=== PATIENT | male | born 1940 | race Caucasian/White ===

== ENCOUNTER → 2019-11-16 10:33 | Outpatient (BNVA) | payer MEDICARE, OTHER, SELFPAY | PROVIDERS: PCP Urology; Visit Provider Nurse Practitioner Family | DX: Z12.5 Encounter for screening for malignant neoplasm of prostate (principal); Z80.42 Family history of malignant neoplasm of prostate; R39.9 Unspecified symptoms and signs involving the genitourinary system; N99.89 Other postprocedural complications and disorders of genitourinary system | CPT/HCPCS: 81001 ==

== ENCOUNTER → 2020-08-02 11:28 | Outpatient (BNVA) | payer MEDICARE, OTHER, SELFPAY | PROVIDERS: PCP Urology; Visit Provider Nurse Practitioner Family | DX: Z20.828 Contact with and (suspected) exposure to other viral communicable diseases (principal) | CPT/HCPCS: 87635 ==

== ENCOUNTER → 2021-11-18 12:59 | Outpatient (BNVA) | payer MEDICARE, OTHER, SELFPAY | PROVIDERS: PCP Internal Medicine; Visit Provider Urology | DX: R39.9 Unspecified symptoms and signs involving the genitourinary system (principal); Z12.5 Encounter for screening for malignant neoplasm of prostate; Z80.42 Family history of malignant neoplasm of prostate | CPT/HCPCS: 81003; G0103 ==

== ENCOUNTER → 2022-11-20 10:15 | Outpatient (BNVA) | payer MEDICARE, OTHER, SELFPAY | PROVIDERS: PCP Family Medicine; Visit Provider Family Medicine | DX: N40.0 Benign prostatic hyperplasia without lower urinary tract symptoms (principal); E78.2 Mixed hyperlipidemia; K21.9 Gastro-esophageal reflux disease without esophagitis; R39.9 Unspecified symptoms and signs involving the genitourinary system; Z76.89 Persons encountering health services in other specified circumstances; R73.03 Prediabetes | CPT/HCPCS: 80053; 80061; 83036; 84153; 85025 ==

== ENCOUNTER → 2023-02-13 09:36 | Outpatient (BNVA) | payer MEDICARE, OTHER, SELFPAY | PROVIDERS: PCP Family Medicine; Visit Provider Nurse Practitioner Family | DX: R50.9 Fever, unspecified (principal) | CPT/HCPCS: 87400; 87426 ==

== ENCOUNTER → 2023-02-23 09:13 | Outpatient (BNVA) | payer MEDICARE, OTHER, SELFPAY | PROVIDERS: PCP Family Medicine; Visit Provider Family Medicine | DX: R05.9 Cough, unspecified (principal) | CPT/HCPCS: 87426 ==

== ENCOUNTER 2023-05-13 10:57 | Outpatient (CLI) | payer MEDICARE, OTHER, SELFPAY ==
--- NOTE | 2023-05-13 11:07 | XRR_ITS ---
PROCEDURE INFORMATION: Exam: XR Chest Exam date and time: 05/13/2023 11:16 AM Age: 82 years old Clinical indication: Other: Right shoulder pain; Additional info: M25.811 - other specified joint disorders, right shoulder TECHNIQUE: Imaging protocol: Radiologic exam of the chest. Views: 2 views. COMPARISON: CR XR chest 2V* [id number] 01/30/2021 11:29 AM FINDINGS: Lungs: There is no consolidation. Pleural spaces: There is no pleural effusion or pneumothorax. There is no pleural effusion or pneumothorax. Heart/Mediastinum: Cardiomediastinal contours are unremarkable. Bones/joints: Bones are unremarkable. XR/XR chest 2V* [id number] IMPRESSION: No acute findings.
== END 2023-05-13 10:58 | disposition home or self-care (01) ==
LOC: RAD 11:02
PROVIDERS: PCP Family Medicine; Visit Provider Family Medicine
DX: M25.811 Other specified joint disorders, right shoulder (principal); M25.511 Pain in right shoulder
CPT/HCPCS: 71046

== ENCOUNTER → 2023-11-27 10:34 | Outpatient (BNVA) | payer MEDICARE, OTHER, SELFPAY | PROVIDERS: PCP Family Medicine; Visit Provider Family Medicine Adult Medicine | DX: R50.9 Fever, unspecified (principal); Z98.890 Other specified postprocedural states; J38.3 Other diseases of vocal cords; Z96.641 Presence of right artificial hip joint; L03.116 Cellulitis of left lower limb; Z96.642 Presence of left artificial hip joint; R50.82 Postprocedural fever | CPT/HCPCS: 87400 ==

== ENCOUNTER 2023-12-11 23:03 | Emergency (ER) | payer MEDICARE, OTHER, SELFPAY ==
[2023-12-11 23:08] VITALS: BP 180/90; PULSE 96; RESP 16; TEMP 37.1; O2SAT 97
--- NOTE | 2023-12-12 00:18 | ED_ITS ---
HPI - Allergic Reaction General: Chief complaint: Allergic Reaction Stated complaint: skin broke out, allergic reaction possible Time Seen by Provider: 12/12/23 00:01 Source: patient Mode of arrival: ambulatory Limitations: no limitations History of Present Illness: HPI narrative: Patient is an 83-year-old female presents to ED today along with his for evaluation of a skin rash. Patient states approximately 2 weeks ago he was placed on Ciprofloxacin and Bactrim for cellulitis involving his left leg patient states he was doing okay until yesterday when he began developing a pruritic rash. He states he first began noticing on his lower abdomen and groin. He states rash has since spread to his thighs, back, arms, buttocks. Again he reports rash is pruritic. He is not having any pain. He states he took 50 mg of Benadryl approximately 5 hours prior to arrival. He does feel like this somewhat faded the rash to his forearms. Patient has not noticed any blisters or vesicular formation. He has no oral, ocular, or genital lesions. Denies prodromal symptoms. MD complaint: allergic reaction Exposure: medication Associated symptoms: Reports rash Severity: moderate Treatment prior to arrival: benadryl (approximately 5 hours ago) and steroids (states he took a 20mg prednisone) Previous Allergic Reaction History: none Review of Systems Const: Denies: fever(s), chills, body aches, fatigue or malaise Eyes: Denies: photophobia, eye discomfort, eye discharge or eye redness ENMT: Denies: odynophagia or oral sores Musc: Denies: joint pain Skin/Breast: Reports: rash, pruritus and erythema; Denies: skin pain [facility] ED PFSH: Medical History Cellulitis of left thigh 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 Spermatocele RIGHT SPERMATOCELECTOMY Family history of prostate cancer in father Lower urinary tract symptoms Surgical History Status post left hip replacement History of nasal surgery Family History Mother , AT AGE 78 LYMPHOMA Cancer Father , AT AGE 77 Cancer PROSTATE CANCER Social History (Reviewed 12/12/23 @ 00:44 by ELDER Taylor Smoking and tobacco/nicotine status: never used tobacco/nicotine Alcohol intake: current Alcohol type: wine Substance/Drug Use: unknown Adopted: No Caregiver/support person: No Lives independently: No Household members: spouse Marital status: service: Yes Current occupational status: retired Course Vital Signs: Vital signs: Vital Signs Temperature 98.8 F 12/11/23 23:08 Pulse Rate 87 12/12/23 00:34 Respiratory Rate 18 12/12/23 00:34 Blood Pressure 180/90 12/11/23 23:08 Pulse Oximetry 92 12/12/23 00:34 Oxygen Delivery Me thod Room Air 12/12/23 00:34 MDM - Allergic Reaction Medical Decision Making At this time I have no concern for SJS/TENS. Lesions are not painful. They are pruritic. He has had no prodromal symptoms. He has no target lesions or bulla. No areas of purpura. At this time there is no mucosal or eye involvement. Patient was given strict instructions on signs/symptoms that should prompt a return visit. His rash has almost fully subsided after IV Benadryl, Pepcid, Solu-Medrol. Differential Diagnosis Likely allergic reaction and adverse reaction to drug Medical Records I reviewed the patient's medical records. No radiology studies performed this visit Discharge Plan Discharge Patient Disposition: Home Clinical Impression: Allergic drug rash due to sulfonamide Condition: Stable Prescriptions: New prednisone 10 mg tablet 10 mg PO DAILY 10 Days Qty: 20 0RF Rx Instructions: Take 5 tabs on day 1-2, 4 tabs on day 3, 3 tabs on day 4, 2 tabs on day 5, and 1 tab on day 6 No Action acetaminophen [Tylenol] 325 mg tablet 325 mg PO .PRN docusate sodium [Dulcolax Stool Softener (dss)] 100 mg capsule 100 mg PO DAILY PRN polyethylene glycol 3350 [Miralax] 17 gram/dose powder 17 g PO DAILY multivitamin Tablet 1 tab PO DAILY triamcinolone acetonide 0.1 % cream 1 applic topical BID fluticasone propionate 50 mcg/actuation spray,suspension See Rx Instructions .ROUTE .COMPLEX Qty: 48 5RF Dose Instruction: USE 1 SPRAY IN EACH NOSTRIL DAILY Rx Instructions: USE 2 SPRAY IN EACH NOSTRIL DAILY ciprofloxacin HCl 750 mg tablet 750 mg PO BID Qty: 30 0RF sulfamethoxazole-trimethoprim [Bactrim DS] 800-160 mg tablet 1 tab PO BID Qty: 30 0RF albuterol sulfate 90 mcg/actuation HFA aerosol inhaler 1 puff inhalation QID PRN (Reason: shortness of breath or wheezing) Qty: 6.7 0RF dexlansoprazole [Dexilant] 60 mg capsule,biphase delayed releas See Rx Instructions .ROUTE .COMPLEX Qty: 30 3RF Dose Instruction: TAKE ONE CAPSULE BY MOUTH EVERY DAY Rx Instructions: TAKE ONE CAPSULE BY MOUTH EVERY DAY cetirizine 10 mg tablet See Rx Instructions .ROUTE .COMPLEX Qty: 90 3RF Dose Instruction: TAKE 1 TABLET DAILY NEEDED FOR ALLERGY SYMPTOMS Rx Instructions: TAKE 1 TABLET DAILY NEEDED FOR ALLERGY SYMPTOMS alprazolam [Xanax] 0.25 mg tablet 0.25 mg PO TID PRN (Reason: anxiety) Qty: 60 1RF Discharge Orders: Discharge ED (Routine); Ordered 12/12/23 Ordered By: Bre Null Referrals: Lalo Lyman DO [Primary Care Provider] - Activity Restrictions/Additional Instructions: As we discussed your rash has almost completely subsided with the medications given here. You can continue Benadryl at a dose of 50 Mg every 4-6 hours to help with rash and itching. He may also take 20 Mg of Pepcid twice daily. I will write you for a steroid taper as well. You do not have to fill this if you feel like rash/itching is controlled with the Benadryl and Pepcid. As we discussed you need to return to the emergency department for worsening rash, any blistering or sloughing of the skin, any lesions to your mouth, genitals, eye redness or burning, fevers, generally feeling unwell, or any other concerns you may have. I hope you begin to feel better soon. Coding Level of Care Code ED Supervisor Volunteer Services for Mikayla Greenwood
[2023-12-12] MEDS: diphenhydrAMINE 50 mg/mL SDV 1mL IVP (00:29)
[2023-12-12] MEDS: famotidine 20 mg/2 mL INJ 40 MG IVP (00:32)
[2023-12-12 00:34] VITALS: PULSE 87; RESP 18; O2SAT 92
[2023-12-12] MEDS: methylPREDNISolone sod succ 125 mg/2 mL INJ IVP (00:34)
[2023-12-12 01:34] VITALS: PULSE 89; RESP 18; O2SAT 96
== END 2023-12-12 01:36 | disposition home or self-care (01) ==
PROVIDERS: Emergency Provider Physician Assistant; PCP Family Medicine
DX: L27.0 Generalized skin eruption due to drugs and medicaments taken internally (principal); T37.0X5A Adverse effect of sulfonamides, initial encounter
CPT/HCPCS: 96374; 96375; 99284; J1200; J2930; J3490

== ENCOUNTER 2023-12-21 13:45 | Outpatient (CLI) | payer MEDICARE, OTHER, SELFPAY ==
[2023-12-21 14:13] LABS: Basophils % 0.3 %; Eosinophils % 0.3 %; Hematocrit 41.6 % (37-53); Lymphocytes # 0.8 10^3/uL (0.8-4.8); Lymphocytes % 8.4 %; Mean Corpuscular HGB Conc 33.7 g/dL (30-55); Mean Corpuscular Hemoglobin 27.9 pg (27-33); Mean Corpuscular Volume 82.9 fl (82-101); Mean Platelet Volume 8.7 fL (7.4-10.4); Monocytes # 1.4 10^3/uL (0.2-0.9); Monocytes % 15.3 %; Neutrophils # 7.06 10^3/uL (1.8-7.7); Neutrophils % 75.3 %; Nucleated Red Blood Cells % 0 %; Platelet Count 299 10^3/cmm (157-399); Red Blood Count 5.02 10^6/uL (3.85-5.65); Red Cell Distribution Width 12.9 % (12.1-15.1); White Blood Count 9.39 10^3/uL (3.29-11.43)
[2023-12-21 14:29] LABS: Erythrocyte Sedimentation Rate 74 mm/hr (0-10)
[2023-12-21 14:38] LABS: Alanine Aminotransferase < 5 U/L (0-41); Albumin Level 3.8 g/dL (3.5-5.2); Alkaline Phosphatase 73 U/L (40-130); Anion Gap 16.1 (5-19); Aspartate Amino Transferase 13 U/L (0-40); Blood Urea Nitrogen 10 mg/dL (8-23); C Reactive Protein 112.9 mg/L (0.0-4.9); Calcium 8.7 mg/dL (8.5-10.5); Carbon Dioxide 23 mmol/L (22-29); Chloride 95 mmol/L (98-107); Globulin 3.4 g/dL (1.3-4.6); Glucose 113 mg/dL (65-115); Osmolality Calculated 270 mOsm/kg (285-295); Potassium 4.1 mmol/L (3.5-5.1); Sodium 130 mmol/L (136-145); Total Bilirubin 0.5 mg/dL (0.15-1.2); Total Protein 7.2 g/dL (6.6-8.7)
[2023-12-21 14:39] LABS: Lactate (Lactic Acid level) 0.9 mmol/L (0.5-2.2)
[2023-12-21 14:43] LABS: Procalcitonin 0.08 ng/mL (0-0.5)
[2023-12-21 15:10] LABS: Protein Urine 1+ (Negative); Specific Gravity, Urine 1.015 (1.005-1.030); Urine Appearance SL Hazy (CLEAR); Urine Color Yellow (Yellow); pH Urine 5 (5-7)
[2023-12-21 15:11] LABS: Bacteria Urine TRACE /hpf; Bilirubin Urine Neg (Negative); Blood Urine 3+ (Negative); Glucose Urine UA Norm (Normal); Ketones Urine 1+ (Negative); Leukocyte Esterase Urine Trace (Negative); Mucus Urine 3+ /hpf; Nitrate Urine Negative (Negative); Squamous Epithelial Cell Urine 0-4 /hpf (0-5); Urobilinogen Urine 1 mg/dL (Negative); WBC Urine 0-4 /hpf (0-5)
[2023-12-21 15:12] LABS: Add Urine Culture? No
[2023-12-22 10:50] LABS: Lyme AB Screen <0.90 index
[2023-12-24 16:34] LABS: RMSF IGG NOT DETECTED; RMSF IGM NOT DETECTED
[2023-12-24 20:35] LABS: E. Chaffeensis AB IGG <1:64; E. Chaffeensis AB IGM <1:20
== END 2023-12-21 13:46 | disposition home or self-care (01) ==
LOC: LAB 13:46
PROVIDERS: PCP Family Medicine; Visit Provider Family Medicine
DX: Z01.89 Encounter for other specified special examinations (principal); R65.10 Systemic inflammatory response syndrome (SIRS) of non-infectious origin without acute organ dysfunction
CPT/HCPCS: 36415; 80053; 81003; 83605; 84145; 85025; 85651; 86140; 86618; 86666; 86757; 87040; 87077; 87086; 87150; 87205

== ENCOUNTER 2023-12-21 18:16 | Emergency (ER) | payer MEDICARE, OTHER, SELFPAY ==
[2023-12-21] VITALS (9 sets, daily range): BP systolic 150–186; BP diastolic 67–92; PULSE 98–131; RESP 16–20; TEMP 37.6–39.1; O2SAT 93–96; BMI 25.5
--- NOTE | 2023-12-21 18:36 | XRR_ITS ---
PROCEDURE INFORMATION: Exam: XR Chest Exam date and time: 12/21/2023 6:46 PM Age: 83 years old Clinical indication: Fever TECHNIQUE: Imaging protocol: Radiologic exam of the chest. Views: 1 view. COMPARISON: CR XR chest 2V* [id number] 05/13/2023 11:16 AM FINDINGS: Lungs: A mild left retrocardiac opacity is nonspecific and suboptimally evaluated due to overlying heart. No definitive consolidation is seen. Pleural spaces: Unremarkable. No pleural effusion. No pneumothorax. Heart/Mediastinum: Unremarkable. No cardiomegaly. Bones/joints: Unremarkable. XR/XR chest 1V portable [id number] IMPRESSION: No definitive evidence of acute cardiopulmonary disease.
--- NOTE | 2023-12-21 18:52 | ED_ITS ---
HPI - Fever 2 General: Chief Complaint: Fever Stated Complaint: Chills,Weakness Time Seen by Provider: 12/21/23 18:35 Source: patient and EMS Mode of arrival: EMS Limitations: no limitations History of Present Illness: 83-year-old male states he had a fever o olamide the last 2 days up to 103 at home today. He did have hip surgery back in September and had a cellulitis at the incision but he had no redness incision no left hip pain he states he is just had generalized fever he has had increased urination every hour and body aches and chills denies any cough denies any vomiting Associated symptoms: Reports chills; Deny abdominal pain, chest pain, diarrhea, dysuria, headache(s), nausea or vomiting Review of Systems 2 Const: Reports: fever(s), chills and body aches; Denies: change in appetite Eyes: Denies: blurry vision or eye discomfort ENMT: Denies: throat pain or dental pain Card: Denies: chest pain Resp: Denies: dyspnea GI: Denies: abdominal pain, nausea, vomiting or diarrhea : Reports: urinary frequency and urinary urgency; Denies: dysuria Musc: Denies: neck pain or back pain Skin/Breast: Denies: rash Neuro: Denies: headache(s) PFSH ED 2 PFSH: Medical History Cellulitis of left thigh 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 Spermatocele RIGHT SPERMATOCELECTOMY Family history of prostate cancer in father Lower urinary tract symptoms Surgical History Status post left hip replacement History of nasal surgery Family History Mother , AT AGE 78 LYMPHOMA Cancer Father , AT AGE 77 Cancer PROSTATE CANCER Social History Smoking and tobacco/nicotine status: never used tobacco/nicotine Alcohol intake: current Alcohol type: wine Substance/Drug Use: unknown Adopted: No Caregiver/support person: No Lives independently: No Household members: spouse Marital status: service: Yes Current occupational status: retired Physical Exam 2 Const: COMMON NORMALS: patient oriented x3 HENMT: COMMON NORMALS: normocephalic and atraumatic HEAD & SCALP: n ormocephalic and atraumatic Eye: COMMON NORMALS: Equal, round and reactive pupils present and EOMs intact bilaterally PUPIL: Yes Equal, round and reactive pupils present Neck/C-Spine: COMMON NORMALS: full ROM and supple Chest: COMMONS NORMALS: normal inspection of the chest and normal palpation of entire chest wall Resp: COMMON NORMALS: normal respiratory effort, No retractions, No use of accessory muscles and clear to auscultation bilaterally AUSCULTATION: clear to auscultation bilaterally Cardio: COMMON NORMALS: regular rate, regular rhythm and No murmurs present (Cardio) RATE: regular rate RHYTHM: regular rhythm GI: COMMON NORMALS: Normal to inspection, nondistended, normoactive bowel sounds present, Soft to palpation, non-tender and no masses PALPATION: Yes Soft to palpation Extremity: COMMON NORMALS: normal to inspection OTHER: Slight tenderness noted over left hip no external cellulitis Neuro: COMMON NORMALS: patient oriented x3, moves all extremities and no focal motor deficits Psych: COMMON NORMALS: mental status grossly normal, Normal thought process present and cooperative THOUGHT PROCESS: Normal thought process present Skin: COMMON NORMALS: no rashes or lesions noted and no wounds GENERAL SKIN EXAM: no rashes or lesions noted Course 2 Vital Signs: Vital signs: Vital Signs Temperature 99.6 F 12/21/23 20:05 Pulse Rate 112 H 12/21/23 21:30 Respiratory Rate 18 12/21/23 21:30 Blood Pressure 172/80 12/21/23 21:30 Pulse Oximetry 96 12/21/23 21:30 Oxygen Delivery Me thod Room Air 12/21/23 18:22 MDM - Fever Medical Decision Making Patient presents here with fever white count is normal did have elevated CRP and ESR he is found to have a abscess on his hip on his CT he had spoke to orthopedics at [facility] where he had his original surgery patient does want to be transferred there for continuity of care they excepted and will transfer there. Medical Records I reviewed the patient's medical records. Lab Data I reviewed the patient's lab results. 12/21/23 19:05 12/21/23 19:05 Radiology Impressions Chest X-Ray 12/21/23 18:36 IMPRESSION: No definitive evidence of acute cardiopulmonary disease. Abdomen/Pelvis CT 12/21/23 20:29 IMPRESSION: 1. Two collections of fluid and gas in the left proximal anterior thigh which may communicate, likely representing abscess(es) in the setting of fever. 2. Mild increased soft tissue density in the central mesentery is likely physiologic though mesenteric panniculitis could have this appearance. Follow-up as indicated. 3. No definitive evidence of acute intra-abdominal or pelvic process. 4. 1.2 cm irregular cystic structure in the lower pole of the left kidney likely representing simple cysts though not well characterized. Recommend nonemergent renal ultrasound follow-up to confirm cyst. 5. Other nonemergent findings above. COMMENTS: Consistent with the [employer]'s Incidental Findings Committee white paper (J Am Magdiel Radiol 2018): Any incidental renal lesion less than 1 cm or classified as too small to characterize, or any incidental cystic renal lesion characterized as simple-appearing, is likely benign. No follow-up imaging is recommended for these lesions per consensus recommendations based on imaging criteria. Laboratory Results WBC 10.82 10^3/uL (3.29-11.43) 12/21/23 19:05 RBC 4.86 10^6/uL (3.85-5.65) 12/21/23 19:05 Hgb 13.50 g/dL (11.27-16.99) 12/21/23 19:05 Hct 40.4 % (37-53) 12/21/23 19:05 MCV 83.1 fl (82-101) 12/21/23 19:05 MCH 27.8 pg (27-33) 12/21/23 19:05 MCHC 33.4 g/dL (30-55) 12/21/23 19:05 RDW 12.8 % (12.1-15.1) 12/21/23 19:05 Plt Count 255 10^3/cmm (157-399) 12/21/23 19:05 MPV 8.5 fL (7.4-10.4) 12/21/23 19:05 Neut % (Auto) 80.2 % 12/21/23 19:05 Lymph % (Auto) 6.0 % 12/21/23 19:05 [place] % (Auto) 12.6 % 12/21/23 19:05 Eos % (Auto) 0.4 % 12/21/23 19:05 Baso % (Auto) 0.4 % 12/21/23 19:05 Neut # (Auto) 8.69 10^3/uL (1.8-7.7) H 12/21/23 19:05 Lymph # (Auto) 0.7 10^3/uL (0.8-4.8) L 12/21/23 19:05 [place] # (Auto) 1.4 10^3/uL (0.2-0.9) H 12/21/23 19:05 Eos # (Auto) 0.0 10^3/uL (0.0-0.8) 12/21/23 19:05 Baso # (Auto) 0.0 10^3/uL (0.0-0.1) 12/21/23 19:05 Nucleated RBC % (auto) 0 % 12/21/23 19:05 Nucleated RBCs # 0.0 /100WBC 12/21/23 19:05 Sodium 128 mmol/L (136-145) L 12/21/23 19:05 Potassium 3.7 mmol/L (3.5-5.1) 12/21/23 19:05 Chloride 94 mmol/L (98-107) L 12/21/23 19:05 Carbon Dioxide 24 mmol/L (22-29) 12/21/23 19:05 Anion Gap 13.7 (5-19) 12/21/23 19:05 BUN 11 mg/dL (8-23) 12/21/23 19:05 Creatinine 0.6 mg/dL (0.7-1.2) L 12/21/23 19:05 GFR Calculation Not Reportable 12/21/23 19:05 Glucose 148 mg/dL (65-115) H 12/21/23 19:05 Calculated Osmolality 268 mOsm/kg (285-295) L 12/21/23 19:05 Lactic Acid 1.2 mmol/L (0.5-2.2) 12/21/23 19:05 Calcium 8.5 mg/dL (8.5-10.5) 12/21/23 19:05 Total Bilirubin 0.4 mg/dL (0.15-1.2) 12/21/23 19:05 AST 12 U/L (0-40) 12/21/23 19:05 ALT 6 U/L (0-41) 12/21/23 19:05 Alkaline Phosphatase 67 U/L (40-130) 12/21/23 19:05 Total Protein 7.1 g/dL (6.6-8.7) 12/21/23 19:05 Albumin 3.4 g/dL (3.5-5.2) L 12/21/23 19:05 Globulin 3.7 g/dL (1.3-4.6) 12/21/23 19:05 Urine Color Yellow (Yellow) 12/21/23 19:55 Urine Appearance Clear (CLEAR) 12/21/23 19:55 Urine pH 6.5 (5-7) 12/21/23 19:55 Ur Specific [place] 1.010 (1.005-1.030) 12/21/23 19:55 Urine Protein Trace (Negative) 12/21/23 19:55 Urine Glucose (UA) Norm (Normal) 12/21/23 19: Urine Ketones Negative (Negative) 12/21/23 19:55 Urine Blood 2+ (Negative) H 12/21/23 19:55 Urine Nitrate Negative (Negative) 12/21/23 19:55 Urine Bilirubin Neg (Negative) 12/21/23 19: Urine Urobilinogen Norm mg/dL (Negative) 12/21/23 19:55 Ur Leukocyte Esterase Negative (Negative) 12/21/23 19:55 Urine RBC 5-10 /hpf (0-2) H 12/21/23 19:55 Urine WBC 0-4 /hpf (0-5) H 12/21/23 19:55 Ur Squamous Epith Cells 0-4 /hpf (0-5) H 12/21/23 19:55 Amorphous Sediment Not Reportable 12/21/23 19:55 Urine Bacteria Trace /hpf (NONE) 12/21/23 19:55 Urine Mucus Trace /hpf 12/21/23 19:55 Influenza Type A Ag negative (Negative) 12/21/23 19: Influenza Type B Ag negative (Negative) 12/21/23 19: SARS-CoV-2 Ag (Rapid) negative (Negative) 12/21/23 19:01 All radiology interpretation(s) finalized by discharge Discharge Plan Discharge Patient Disposition: Xfer Short-Term Hosp Clinical Impression: Abscess of hip, left Condition: Stable Prescriptions: No Action acetaminophen [Tylenol] 325 mg tablet 325 mg PO .PRN docusate sodium [Dulcolax Stool Softener (dss)] 100 mg capsule 100 mg PO DAILY PRN polyethylene glycol 3350 [Miralax] 17 gram/dose powder 17 g PO DAILY multivitamin Tablet 1 tab PO DAILY triamcinolone acetonide 0.1 % cream 1 applic topical BID fluticasone propionate 50 mcg/actuation spray,suspension See Rx Instructions .ROUTE .COMPLEX Qty: 48 5RF Dose Instruction: USE 1 SPRAY IN EACH NOSTRIL DAILY Rx Instructions: USE 2 SPRAY IN EACH NOSTRIL DAILY doxycycline hyclate 100 mg capsule 100 mg PO BID Qty: 20 0RF dexlansoprazole [Dexilant] 60 mg capsule,biphase delayed releas See Rx Instructions .ROUTE .COMPLEX Qty: 30 3RF Dose Instruction: TAKE ONE CAPSULE BY MOUTH EVERY DAY Rx Instructions: TAKE ONE CAPSULE BY MOUTH EVERY DAY cetirizine 10 mg tablet See Rx Instructions .ROUTE .COMPLEX Qty: 90 3RF Dose Instruction: TAKE 1 TABLET DAILY NEEDED FOR ALLERGY SYMPTOMS Rx Instructions: TAKE 1 TABLET DAILY NEEDED FOR ALLERGY SYMPTOMS alprazolam [Xanax] 0.25 mg tablet 0.25 mg PO TID PRN (Reason: anxiety) Qty: 60 1RF albuterol sulfate 90 mcg/actuation HFA aerosol inhaler See Rx Instructions .ROUTE .COMPLEX Qty: 51 3RF Dose Instruction: USE 1 INHALATION FOUR TIMES A DAY NEEDED FOR SHORTNESS OF BREATH OR WHEEZING Rx Instructions: USE 1 INHALATION FOUR TIMES A DAY NEEDED FOR SHORTNESS OF BREATH OR WHEEZING Referrals: Lalo Lyman DO [Primary Care Provider] - Coding Level of Care Code ED Office Machine Technician for Mikayla Greenwood
[2023-12-21] MEDS: acetaminophen 325 mg Tablet 650 MG PO (18:59)
[2023-12-21] MEDS: sodium chloride 0.9% 1,000 ML 999 ML IV ×3 (19:14→21:49)
[2023-12-21 19:15] LABS: Basophils % 0.4 %; Eosinophils % 0.4 %; Hematocrit 40.4 % (37-53); Lymphocytes # 0.7 10^3/uL (0.8-4.8); Mean Corpuscular HGB Conc 33.4 g/dL (30-55); Mean Corpuscular Hemoglobin 27.8 pg (27-33); Mean Corpuscular Volume 83.1 fl (82-101); Mean Platelet Volume 8.5 fL (7.4-10.4); Monocytes # 1.4 10^3/uL (0.2-0.9); Monocytes % 12.6 %; Neutrophils # 8.69 10^3/uL (1.8-7.7); Neutrophils % 80.2 %; Nucleated Red Blood Cells % 0 %; Platelet Count 255 10^3/cmm (157-399); Red Blood Count 4.86 10^6/uL (3.85-5.65); Red Cell Distribution Width 12.8 % (12.1-15.1); White Blood Count 10.82 10^3/uL (3.29-11.43)
[2023-12-21 19:35] LABS: Alanine Aminotransferase 6 U/L (0-41); Albumin Level 3.4 g/dL (3.5-5.2); Alkaline Phosphatase 67 U/L (40-130); Anion Gap 13.7 (5-19); Aspartate Amino Transferase 12 U/L (0-40); Blood Urea Nitrogen 11 mg/dL (8-23); Calcium 8.5 mg/dL (8.5-10.5); Carbon Dioxide 24 mmol/L (22-29); Chloride 94 mmol/L (98-107); Globulin 3.7 g/dL (1.3-4.6); Glucose 148 mg/dL (65-115); Osmolality Calculated 268 mOsm/kg (285-295); Potassium 3.7 mmol/L (3.5-5.1); Sodium 128 mmol/L (136-145); Total Bilirubin 0.4 mg/dL (0.15-1.2); Total Protein 7.1 g/dL (6.6-8.7)
[2023-12-21 19:36] LABS: Influenza A by IFA negative (Negative); Influenza B by IFA negative (Negative)
[2023-12-21 19:36] LABS: Lactic Sepsis W/Reflex 1.2 mmol/L (0.5-2.2)
[2023-12-21 19:38] LABS: SARS Covid-2 Antigen negative (Negative)
[2023-12-21 20:18] LABS: Bilirubin Urine Neg (Negative); Blood Urine 2+ (Negative); Glucose Urine UA Norm (Normal); Ketones Urine Negative (Negative); Leukocyte Esterase Urine Negative (Negative); Nitrate Urine Negative (Negative); Protein Urine Trace (Negative); Urine Appearance Clear (CLEAR); Urine Color Yellow (Yellow); Urobilinogen Urine Norm (Negative); pH Urine 6.5 (5-7)
[2023-12-21 20:19] LABS: Add Urine Microscopic? YES
[2023-12-21 20:20] LABS: Add Urine Culture? No; Bacteria Urine TRACE /hpf; Mucus Urine TRACE /hpf; Squamous Epithelial Cell Urine 0-4 /hpf (0-5); WBC Urine 0-4 /hpf (0-5)
--- NOTE | 2023-12-21 20:29 | CTR_ITS ---
PROCEDURE INFORMATION: Exam: CT Abdomen And Pelvis With Contrast Exam date and time: 12/21/2023 8:39 PM Age: 83 years old Clinical indication: Fever; Prior surgery; Surgery date: 6+ months; Surgery type: Left hip TECHNIQUE: Imaging protocol: Computed tomography of the abdomen and pelvis with contrast. Radiation optimization: All CT scans at this facility use at least one of these dose optimization techniques: automated exposure control; mA and/or kV adjustment per patient size (includes targeted exams where dose is matched to clinical indication); or iterative reconstruction. Contrast material: OMNI 350; Contrast volume: 100 ml; Contrast route: INTRAVENOUS (IV); COMPARISON: CR (CHEST, ) 12/21/2023 6:46 PM RADIATION DOSE METRICS: Total DLP (mGy-cm): 750.03 FINDINGS: Liver: The liver is normal. No hepatic masses are identified. Gallbladder and bile ducts: There is suggestion of a small gallstone in the gallbladder. There is no gallbladder wall thickening or pericholecystic inflammatory change. Pancreas: The pancreas is mildly atrophic but otherwise within normal limits. Spleen: The spleen is normal. Adrenal glands: The adrenal glands are normal. Kidneys and ureters: There is a 2.5 cm simple cyst arising from the lower pole of the right kidney. There is a 1.2 cm irregular cystic structure in the lower pole of the left kidney which is not well characterized on this study and may demonstrate some medial peripheral enhancement though likely represents a simple cyst. Excreted contrast limits evaluation for renal calcification. No definitive renal calculi are identified. There is no hydronephrosis. Stomach and bowel: Mild colonic diverticulosis without diverticulitis. Incidental note is made of small bowel in the right lower quadrant lateral to the cecum without evidence of large or small bowel obstruction. There is mild increased soft tissue density in the central mesentery which is likely physiologic though can be seen in mesenteric panniculitis. No definitive focal inflammatory changes are seen. No free fluid or fluid collections are identified. Appendix: A normal appendix is identified. Intraperitoneal space: See Stomach and bowel finding. Vasculature: Atherosclerotic calcifications of the aorta are present. Lymph nodes: Unremarkable. No enlarged lymph nodes. Urinary bladder: Unremarkable as visualized. Reproductive: The prostate is mildly enlarged and projects into the base of the otherwise normal urinary bladder. Bones/joints: Area of the left hip is suboptimally imaged due to streak artifact from left hip arthroplasty. There is a collection of fluid and gas measuring at least 2.5 cm in transverse dimension and at least 3.1 cm in craniocaudal extent, likely representing an abscess in the setting of fever. There is suggestion of an additional collection just inferiorly measuring up to 2.1 x 3.6 cm which may communicate with this collection. These collections appear to be within the anterior musculature of the left proximal thigh though may be within the intermuscular fascia or fat. Soft tissues: Small bilateral inguinal hernias containing only fat. Other findings: There is no ductal dilatation. CT/CT abdomen pelvis w con* [id number] IMPRESSION: 1. Two collections of fluid and gas in the left proximal anterior thigh which may communicate, likely representing abscess(es) in the setting of fever. 2. Mild increased soft tissue density in the central mesentery is likely physiologic though mesenteric panniculitis could have this appearance. Follow-up as indicated. 3. No definitive evidence of acute intra-abdominal or pelvic process. 4. 1.2 cm irregular cystic structure in the lower pole of the left kidney likely representing simple cysts though not well characterized. Recommend nonemergent renal ultrasound follow-up to confirm cyst. 5. Other nonemergent findings above. COMMENTS: Consistent with the [employer] [employer]'s Incidental Findings Committee white paper (J Am Magdiel Radiol 2018): Any incidental renal lesion less than 1 cm or classified as too small to characterize, or any incidental cystic renal lesion characterized as simple-appearing, is likely benign. No follow-up imaging is recommended for these lesions per consensus recommendations based on imaging criteria.
[2023-12-21] MEDS: iohexol 350 mg/mL 500 mL Btl (per mL) IV (20:44)
[2023-12-21] MEDS: vancomycin 1,000 MG in sodium chloride 0.9% 250 ML 250 MG IV (21:30)
[2023-12-21] MEDS: bisacodyl 5 mg Tablet 10 MG PO (22:32)
[2023-12-21] MEDS: ondansetron 2 mg/ML SDV 2 mL 4 MG IVP (23:29)
[2023-12-21] MEDS: acetaminophen 500 mg Tablet 1000 MG PO (23:30)
--- NOTE | 2023-12-22 02:19 | PC.NURSE ---
lab called with a preliminary result of 1/6 bottles gram + cocci in chains.
[2023-12-22 03:45] LABS: Bacillus cereus group Not Detected (NOT DETECT); Bacillus subtillis group Not Detected (NOT DETECT); Corynebacterium Not Detected (NOT DETECT); Cutibacterium acnes (P.acnes) Not Detected (NOT DETECT); Enterococcus Not Detected (NOT DETECT); Enterococcus faecalis Not Detected (NOT DETECT); Enterococcus faecium Not Detected (NOT DETECT); Lactobacillus species Not Detected (NOT DETECT); Listeria Not Detected (NOT DETECT); Listeria monocytogenes Not Detected (NOT DETECT); Micrococcus Not Detected (NOT DETECT); Pan Candida Not Detected (NOT DETECT); Pan Gram-Negative Not Detected (NOT DETECT); Staphylococcus epidermidis Not Detected (NOT DETECT); Staphylococcus lugdunensis Not Detected (NOT DETECT); Staphylococcus species Not Detected (NOT DETECT); Streptococcus agalactiae Detected (NOT DETECT); Streptococcus anginosus group Not Detected (NOT DETECT); Streptococcus pneumoniae Not Detected (NOT DETECT); Streptococcus pyogenes Not Detected (NOT DETECT); Streptococcus species Detected (NOT DETECT)
== END 2023-12-21 23:48 | disposition short-term general hospital (02) ==
PROVIDERS: Emergency Provider Emergency Medicine; PCP Family Medicine
DX: L02.416 Cutaneous abscess of left lower limb (principal); Z11.52 Encounter for screening for COVID-19
CPT/HCPCS: 36415; 71045; 74177; 80053; 81001; 81003; 83605; 84145; 85025; 85651; 86140; 86618; 86666; 86757; 87040; 87077; 87086; 87150; 87205; 87426; 87804; 96361; 96365; 96375; 99285; J2405; J3370; J7030; J7050; Q9967

== ENCOUNTER 2024-01-26 08:30 | Oncology outpatient (recurring) (ONCR) | payer MEDICARE, OTHER, SELFPAY ==
[2024-01-05 10:57] LABS: Basophils # 0.1 10^3/uL (0.0-0.1); Basophils % 1.9 %; Eosinophils # 0.6 10^3/uL (0.0-0.8); Eosinophils % 9.2 %; Hematocrit 36.1 % (37-53); Lymphocytes # 1.4 10^3/uL (0.8-4.8); Lymphocytes % 19.7 %; Mean Corpuscular HGB Conc 32.7 g/dL (30-55); Mean Corpuscular Hemoglobin 27.6 pg (27-33); Mean Corpuscular Volume 84.5 fl (82-101); Mean Platelet Volume 8.7 fL (7.4-10.4); Monocytes # 0.7 10^3/uL (0.2-0.9); Monocytes % 10.7 %; Neutrophils % 58.4 %; Nucleated Red Blood Cells % 0 %; Platelet Count 329 10^3/cmm (157-399); Red Blood Count 4.27 10^6/uL (3.85-5.65); Red Cell Distribution Width 13.4 % (12.1-15.1); White Blood Count 6.85 10^3/uL (3.29-11.43)
[2024-01-05 11:23] LABS: Alanine Aminotransferase 7 U/L (0-41); Albumin Level 3.8 g/dL (3.5-5.2); Alkaline Phosphatase 82 U/L (40-130); Anion Gap 15.6 (5-19); Aspartate Amino Transferase 23 U/L (0-40); Blood Urea Nitrogen 10 mg/dL (8-23); C Reactive Protein 5.6 mg/L (0.0-4.9); Calcium 8.8 mg/dL (8.5-10.5); Carbon Dioxide 27 mmol/L (22-29); Chloride 100 mmol/L (98-107); Globulin 3.1 g/dL (1.3-4.6); Glucose 136 mg/dL (65-115); Osmolality Calculated 287 mOsm/kg (285-295); Potassium 4.6 mmol/L (3.5-5.1); Sodium 138 mmol/L (136-145); Total Bilirubin 0.4 mg/dL (0.15-1.2); Total Protein 6.9 g/dL (6.6-8.7)
[2024-01-13 11:10] LABS: Basophils # 0.1 10^3/uL (0.0-0.1); Basophils % 1.8 %; Eosinophils # 0.7 10^3/uL (0.0-0.8); Eosinophils % 14.1 %; Hematocrit 36.9 % (37-53); Lymphocytes # 0.9 10^3/uL (0.8-4.8); Lymphocytes % 18.1 %; Mean Corpuscular Hemoglobin 26.9 pg (27-33); Mean Corpuscular Volume 84.2 fl (82-101); Mean Platelet Volume 8.9 fL (7.4-10.4); Monocytes # 0.7 10^3/uL (0.2-0.9); Monocytes % 13.6 %; Neutrophils # 2.66 10^3/uL (1.8-7.7); Neutrophils % 52.2 %; Nucleated Red Blood Cells % 0 %; Platelet Count 239 10^3/cmm (157-399); Red Blood Count 4.38 10^6/uL (3.85-5.65); Red Cell Distribution Width 13.9 % (12.1-15.1); White Blood Count 5.09 10^3/uL (3.29-11.43)
[2024-01-13 11:33] LABS: Alanine Aminotransferase 9 U/L (0-41); Alkaline Phosphatase 87 U/L (40-130); Anion Gap 15.2 (5-19); Aspartate Amino Transferase 18 U/L (0-40); Blood Urea Nitrogen 12 mg/dL (8-23); Carbon Dioxide 27 mmol/L (22-29); Chloride 100 mmol/L (98-107); Globulin 2.9 g/dL (1.3-4.6); Glucose 108 mg/dL (65-115); Osmolality Calculated 286 mOsm/kg (285-295); Potassium 4.2 mmol/L (3.5-5.1); Sodium 138 mmol/L (136-145); Total Bilirubin 0.3 mg/dL (0.15-1.2); Total Protein 6.9 g/dL (6.6-8.7)
[2024-01-19 10:59] LABS: Basophils # 0.1 10^3/uL (0.0-0.1); Basophils % 1.5 %; Eosinophils # 1.1 10^3/uL (0.0-0.8); Eosinophils % 18.7 %; Lymphocytes # 1.2 10^3/uL (0.8-4.8); Lymphocytes % 21.1 %; Mean Corpuscular HGB Conc 32.1 g/dL (30-55); Mean Corpuscular Hemoglobin 27.1 pg (27-33); Mean Corpuscular Volume 84.3 fl (82-101); Monocytes # 0.7 10^3/uL (0.2-0.9); Monocytes % 11.7 %; Neutrophils # 2.73 10^3/uL (1.8-7.7); Neutrophils % 46.8 %; Nucleated Red Blood Cells % 0 %; Platelet Count 190 10^3/cmm (157-399); Red Blood Count 4.51 10^6/uL (3.85-5.65); Red Cell Distribution Width 14.4 % (12.1-15.1); White Blood Count 5.83 10^3/uL (3.29-11.43)
[2024-01-19 11:20] LABS: Alanine Aminotransferase 127 U/L (0-41); Albumin Level 4.2 g/dL (3.5-5.2); Alkaline Phosphatase 166 U/L (40-130); Anion Gap 11.4 (5-19); Aspartate Amino Transferase 65 U/L (0-40); Blood Urea Nitrogen 12 mg/dL (8-23); C Reactive Protein 4.5 mg/L (0.0-4.9); Calcium 9.1 mg/dL (8.5-10.5); Carbon Dioxide 28 mmol/L (22-29); Chloride 102 mmol/L (98-107); Globulin 2.5 g/dL (1.3-4.6); Glucose 132 mg/dL (65-115); Osmolality Calculated 286 mOsm/kg (285-295); Potassium 4.4 mmol/L (3.5-5.1); Sodium 137 mmol/L (136-145); Total Bilirubin 0.4 mg/dL (0.15-1.2); Total Protein 6.7 g/dL (6.6-8.7)
[2024-01-22 08:24] LABS: Basophils # 0.1 10^3/uL (0.0-0.1); Basophils % 2.2 %; Eosinophils # 0.6 10^3/uL (0.0-0.8); Eosinophils % 10.3 %; Hematocrit 39.7 % (37-53); Lymphocytes # 1.2 10^3/uL (0.8-4.8); Mean Corpuscular Volume 84.5 fl (82-101); Mean Platelet Volume 8.9 fL (7.4-10.4); Monocytes # 0.5 10^3/uL (0.2-0.9); Monocytes % 8.8 %; Neutrophils # 3.09 10^3/uL (1.8-7.7); Neutrophils % 56.5 %; Nucleated Red Blood Cells % 0 %; Platelet Count 216 10^3/cmm (157-399); Red Cell Distribution Width 14.3 % (12.1-15.1); White Blood Count 5.46 10^3/uL (3.29-11.43)
[2024-01-22 08:41] LABS: Alanine Aminotransferase 71 U/L (0-41); Albumin Level 4.2 g/dL (3.5-5.2); Alkaline Phosphatase 138 U/L (40-130); Anion Gap 15.1 (5-19); Aspartate Amino Transferase 55 U/L (0-40); Blood Urea Nitrogen 12 mg/dL (8-23); Calcium 9.1 mg/dL (8.5-10.5); Carbon Dioxide 24 mmol/L (22-29); Chloride 103 mmol/L (98-107); Globulin 2.9 g/dL (1.3-4.6); Glucose 126 mg/dL (65-115); Osmolality Calculated 287 mOsm/kg (285-295); Potassium 4.1 mmol/L (3.5-5.1); Sodium 138 mmol/L (136-145); Total Bilirubin 0.5 mg/dL (0.15-1.2); Total Protein 7.1 g/dL (6.6-8.7)
[2024-01-26 09:08] LABS: Basophils # 0.1 10^3/uL (0.0-0.1); Basophils % 1.8 %; Eosinophils # 0.5 10^3/uL (0.0-0.8); Hematocrit 39.9 % (37-53); Lymphocytes # 1.2 10^3/uL (0.8-4.8); Lymphocytes % 24.2 %; Mean Corpuscular HGB Conc 32.1 g/dL (30-55); Mean Corpuscular Hemoglobin 27.2 pg (27-33); Mean Corpuscular Volume 84.9 fl (82-101); Mean Platelet Volume 8.7 fL (7.4-10.4); Monocytes # 0.6 10^3/uL (0.2-0.9); Monocytes % 11.6 %; Neutrophils # 2.67 10^3/uL (1.8-7.7); Neutrophils % 53.2 %; Nucleated Red Blood Cells % 0 %; Platelet Count 228 10^3/cmm (157-399); Red Cell Distribution Width 14.6 % (12.1-15.1); White Blood Count 5.01 10^3/uL (3.29-11.43)
[2024-01-26 09:22] LABS: Alanine Aminotransferase 28 U/L (0-41); Albumin Level 4.3 g/dL (3.5-5.2); Alkaline Phosphatase 108 U/L (40-130); Anion Gap 15.2 (5-19); Aspartate Amino Transferase 24 U/L (0-40); Blood Urea Nitrogen 10 mg/dL (8-23); Calcium 9.3 mg/dL (8.5-10.5); Carbon Dioxide 27 mmol/L (22-29); Chloride 104 mmol/L (98-107); Globulin 2.8 g/dL (1.3-4.6); Glucose 93 mg/dL (65-115); Osmolality Calculated 293 mOsm/kg (285-295); Potassium 4.2 mmol/L (3.5-5.1); Sodium 142 mmol/L (136-145); Total Bilirubin 0.6 mg/dL (0.15-1.2); Total Protein 7.1 g/dL (6.6-8.7)
[2024-01-26 09:23] LABS: Vancomycin Trough 10.5 ug/mL (10-15)
== END 2024-01-31 23:59 | disposition home or self-care (01) ==
PROVIDERS: PCP Family Medicine; Visit Provider Nurse Practitioner Acute Care
DX: Z53.9 Procedure and treatment not carried out, unspecified reason (principal); R78.81 Bacteremia
CPT/HCPCS: 36415; 36592; 80053; 80202; 85025; 86140; J1642

== ENCOUNTER 2024-02-16 08:00 | Oncology outpatient (recurring) (ONCR) | payer MEDICARE, OTHER, SELFPAY ==
[2024-02-02 08:06] VITALS: BP 143/74; PULSE 82; RESP 16; TEMP 36.6; O2SAT 95
[2024-02-02 08:50] LABS: Basophils # 0.1 10^3/uL (0.0-0.1); Basophils % 1.8 %; Eosinophils # 0.4 10^3/uL (0.0-0.8); Eosinophils % 8.3 %; Hematocrit 38.5 % (37-53); Lymphocytes % 22.2 %; Mean Corpuscular Hemoglobin 27.5 pg (27-33); Mean Corpuscular Volume 83.5 fl (82-101); Mean Platelet Volume 8.7 fL (7.4-10.4); Monocytes # 0.4 10^3/uL (0.2-0.9); Monocytes % 9.2 %; Neutrophils % 58.3 %; Nucleated Red Blood Cells % 0 %; Platelet Count 228 10^3/cmm (157-399); Red Blood Count 4.61 10^6/uL (3.85-5.65); Red Cell Distribution Width 14.4 % (12.1-15.1); White Blood Count 4.46 10^3/uL (3.29-11.43)
[2024-02-02 09:08] LABS: Alanine Aminotransferase 10 U/L (0-41); Albumin Level 4.2 g/dL (3.5-5.2); Alkaline Phosphatase 93 U/L (40-130); Anion Gap 14.1 (5-19); Aspartate Amino Transferase 21 U/L (0-40); Blood Urea Nitrogen 11 mg/dL (8-23); Calcium 9.5 mg/dL (8.5-10.5); Carbon Dioxide 25 mmol/L (22-29); Chloride 106 mmol/L (98-107); Globulin 2.9 g/dL (1.3-4.6); Glucose 115 mg/dL (65-115); Osmolality Calculated 292 mOsm/kg (285-295); Potassium 4.1 mmol/L (3.5-5.1); Sodium 141 mmol/L (136-145); Total Bilirubin 0.7 mg/dL (0.15-1.2); Total Protein 7.1 g/dL (6.6-8.7)
[2024-02-02 09:29] LABS: Vancomycin Trough 13.4 ug/mL (10-15)
== END 2024-03-01 23:59 | disposition home or self-care (01) ==
PROVIDERS: PCP Family Medicine; Visit Provider Nurse Practitioner Acute Care
DX: Z53.9 Procedure and treatment not carried out, unspecified reason (principal)
CPT/HCPCS: 36415; 80053; 80202; 85025; 86140

== ENCOUNTER 2025-03-21 09:15 | Emergency (ER) | payer MEDICARE, OTHER, SELFPAY ==
[2025-03-21 09:17] VITALS: BP 181/87; PULSE 85; TEMP 36.7; O2SAT 98
[2025-03-21 10:28] LABS: Basophils # 0.1 10^3/uL (0.0-0.1); Basophils % 1.4 %; Eosinophils # 0.1 10^3/uL (0.0-0.8); Eosinophils % 1.9 %; Hematocrit 44.2 % (37-53); Lymphocytes # 1.2 10^3/uL (0.8-4.8); Lymphocytes % 19.9 %; Mean Corpuscular HGB Conc 33.5 g/dL (30-55); Mean Corpuscular Hemoglobin 29.5 pg (27-33); Mean Corpuscular Volume 88.2 fl (82-101); Mean Platelet Volume 9.3 fL (7.4-10.4); Monocytes # 0.5 10^3/uL (0.2-0.9); Monocytes % 8.7 %; Neutrophils % 67.8 %; Nucleated Red Blood Cells % 0 %; Platelet Count 197 10^3/cmm (157-399); Red Blood Count 5.01 10^6/uL (3.85-5.65); Red Cell Distribution Width 12.7 % (12.1-15.1); White Blood Count 5.89 10^3/uL (3.29-11.43)
[2025-03-21 10:45] LABS: INR 0.97 (0.8-1.2); Partial Thromboplastin Time 25.5 SECONDS (23.9-36.7)
[2025-03-21 10:51] LABS: Alanine Aminotransferase 7 U/L (0-41); Albumin Level 4.4 g/dL (3.5-5.2); Alkaline Phosphatase 63 U/L (40-130); Anion Gap 15.1 (5-19); Aspartate Amino Transferase 20 U/L (0-40); Blood Urea Nitrogen 10 mg/dL (8-23); Calcium 9.1 mg/dL (8.5-10.5); Carbon Dioxide 23 mmol/L (22-29); Chloride 105 mmol/L (98-107); Creatinine Clr Calc Pharmacy 72.3836; Globulin 2.4 g/dL (1.3-4.6); Glucose 109 mg/dL (65-115); Osmolality Calculated 288 mOsm/kg (285-295); Potassium 4.1 mmol/L (3.5-5.1); Sodium 139 mmol/L (136-145); Total Bilirubin 0.8 mg/dL (0.15-1.2); Total Protein 6.8 g/dL (6.6-8.7)
--- NOTE | 2025-03-21 11:34 | W.ED.GIBLEED ---
HPI - GI Bleed General: Chief complaint: GI Bleed Stated complaint: bloody stool Time Seen by Provider: 03/21/25 11:01 Source: patient Mode of arrival: ambulatory Limitations: no limitations History of Present Illness: 84-year-old male states he has been noticing some bright red blood in his stools over the last 2 days. States had some slight diarrhea noticed blood in the toilet and some when he wipes. He denies any lightheadedness states he been feeling completely normal denies any pain or fever no black tarry stools. No history of GI bleed Associated symptoms: Denies abdominal pain, chills, fever(s), headache(s), nausea, rash or vomiting Related Data Home Medications ?Medication ?Instructions ?Recorded ?Confirmed acetaminophen 325 mg tablet 325 mg PO .PRN 11/16/19 07/08/24 (Tylenol) docusate sodium 100 mg capsule 100 mg PO DAILY PRN 11/18/21 07/08/24 (Dulcolax Stool Softener (docusate)) polyethylene glycol 3350 17 17 g PO DAILY 11/18/21 07/08/24 gram/dose oral powder (Miralax) multivitamin 1 tab PO DAILY 01/08/22 07/08/24 triamcinolone acetonide 0.1 % 1 applic topical BID 11/20/22 07/08/24 topical cream Previous Rx's ?Medication ?Instructions ?Recorded cetirizine 10 mg tablet See Rx Instructions .Route 08/26/23 .COMPLEX #90 tabs fluticasone propionate 50 See Rx Instructions .Route 11/05/23 mcg/actuation nasal .COMPLEX #48 grams spray,suspension albuterol sulfate 90 mcg/actuation See Rx Instructions .Route 12/14/23 aerosol inhaler .COMPLEX #51 grams dexlansoprazole 60 mg See Rx Instructions .Route 12/29/23 capsule,biphase delayed release .COMPLEX #30 caps (Dexilant) alprazolam 0.25 mg tablet (Xanax) 0.25 mg PO TID PRN anxiety #60 tabs 03/22/24 Allergies Allergy/AdvReac Type Severity Reaction Status Date / Time ciprofloxacin (From Cipro) Allergy ALGY-Rash Verified 03/21/25 09:22 clindamycin Allergy Unknown Verified 03/21/25 09:22 pantoprazole (From Protonix) Allergy abdominal Verified 03/21/25 09:22 pain Penicillins Allergy Unknown Verified 03/21/25 09:22 sulfamethoxazole (From Allergy ALGY-Rash Verified 03/21/25 09:22 Bactrim) trimethoprim (From Bactrim) Allergy ALGY-Rash Verified 03/21/25 09:22 Review of Systems Const: Denies: fever(s), chills, body aches or change in appetite ENMT: Denies: throat pain or dental pain Card: Denies: chest pain Resp: Denies: dyspnea GI: Reports: hematochezia; Denies: abdominal pain, nausea, vomiting or diarrhea Musc: Denies: neck pain or back pain Skin/Breast: Denies: rash Neuro: Denies: headache(s) PFSH ED PFSH: Medical History Cellulitis of left thigh 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 Spermatocele RIGHT SPERMATOCELECTOMY Family history of prostate cancer in father Lower urinary tract symptoms Surgical History Status post left hip replacement History of nasal surgery Family History Mother , AT AGE 78 LYMPHOMA Cancer Father , AT AGE 77 Cancer PROSTATE CANCER Social History Smoking and tobacco/nicotine status: never used tobacco/nicotine Alcohol intake: current Alcohol type: wine Substance/Drug Use: unknown Adopted: No Caregiver/support person: No Lives independently: No Household members: spouse Marital status: service: Yes Current occupational status: retired Physical Exam Const: COMMON NORMALS: no acute distress, patient oriented x3 and healthy appearing HENMT: COMMON NORMALS: normocephalic and atraumatic HEAD & SCALP: normocephalic and atraumatic Eye: COMMON NORMALS: conjunctivae normal CONJUNCTIVA: Yes conjunctivae normal Neck/C-Spine: COMMON NORMALS: full ROM and supple Chest: COMMONS NORMALS: normal inspection of the chest Resp: COMMON NORMALS: normal respiratory effort Cardio: COMMON NORMALS: regular rate RATE: regular rate GI: COMMON NORMALS: Normal to inspection, nondistended, normoactive bowel sounds present, Soft to palpation, non-tender and no masses PALPATION: Yes Soft to palpation OTHER: Slight anal fissure noted he does have some bright red stool on rectal exam Extremity: COMMON NORMALS: normal to inspection and full ROM Neuro: COMMON NORMALS: patient oriented x3, moves all extremities and no focal motor deficits Psych: COMMON NORMALS: mental status grossly normal, Normal thought process present and cooperative THOUGHT PROCESS: Normal thought process present Skin: COMMON NORMALS: no rashes or lesions noted and no wounds GENERAL SKIN EXAM: no rashes or lesions noted Course Vital Signs: Vital signs: Vital Signs Temperature 98.0 F 03/21/25 09:17 Pulse Rate 85 03/21/25 09:17 Blood Pressure 181/87 03/21/25 09:17 Pulse Oximetry 98 03/21/25 09:17 Oxygen Delivery Me thod Room Air 03/21/25 09:17 MDM - GI Bleed Medical Decision Making Patient presents with a lower GI bleed he is well-appearing here hemodynamically stable his hemoglobin is normal no signs of an upper GI bleed he has had colonoscopy 15 years ago he states by Dr. Martini I recommended him follow back up with his PCP or Dr. Martini likely needs another colonoscopy I informed him if his symptoms worsens he is to return he understands agrees with plan. Lab Data 03/21/25 10:15 03/21/25 10:15 Laboratory Results WBC 5.89 10^3/uL (3.29-11.43) 03/21/25 10:15 RBC 5.01 10^6/uL (3.85-5.65) 03/21/25 10:15 Hgb 14.80 g/dL (11.27-16.99) 03/21/25 10:15 Hct 44.2 % (37-53) 03/21/25 10:15 MCV 88.2 fl (82-101) 03/21/25 10:15 MCH 29.5 pg (27-33) 03/21/25 10:15 MCHC 33.5 g/dL (30-55) 03/21/25 10:15 RDW 12.7 % (12.1-15.1) 03/21/25 10:15 Plt Count 197 10^3/cmm (157-399) 03/21/25 10:15 MPV 9.3 fL (7.4-10.4) 03/21/25 10:15 Neut % (Auto) 67.8 % 03/21/25 10:15 Lymph % (Auto) 19.9 % 03/21/25 10:15 Jackson % (Auto) 8.7 % 03/21/25 10:15 Eos % (Auto) 1.9 % 03/21/25 10:15 Baso % (Auto) 1.4 % 03/21/25 10:15 Neut # (Auto) 4.00 10^3/uL (1.8-7.7) 03/21/25 10:15 Lymph # (Auto) 1.2 10^3/uL (0.8-4.8) 03/21/25 10:15 Jackson # (Auto) 0.5 10^3/uL (0.2-0.9) 03/21/25 10:15 Eos # (Auto) 0.1 10^3/uL (0.0-0.8) 03/21/25 10:15 Baso # (Auto) 0.1 10^3/uL (0.0-0.1) 03/21/25 10:15 Nucleated RBC % (auto) 0 % 03/21/25 10:15 Nucleated RBCs # 0.0 /100WBC 03/21/25 10:15 PT 13.60 SECONDS (12.1-14.9) 03/21/25 10:15 INR 0.97 (0.8-1.2) 03/21/25 10:15 APTT 25.5 SECONDS (23.9-36.7) 03/21/25 10:15 Sodium 139 mmol/L (136-145) 03/21/25 10:15 Potassium 4.1 mmol/L (3.5-5.1) 03/21/25 10:15 Chloride 105 mmol/L (98-107) 03/21/25 10:15 Carbon Dioxide 23 mmol/L (22-29) 03/21/25 10:15 Anion Gap 15.1 (5-19) 03/21/25 10:15 BUN 10 mg/dL (8-23) 03/21/25 10:15 Creatinine 0.6 mg/dL (0.7-1.2) L 03/21/25 10:15 GFR Calculation Not Reportable 03/21/25 10:15 Glucose 109 mg/dL (65-115) 03/21/25 10:15 Calculated Osmolality 288 mOsm/kg (285-295) 03/21/25 10:15 Calcium 9.1 mg/dL (8.5-10.5) 03/21/25 10:15 Total Bilirubin 0.8 mg/dL (0.15-1.2) 03/21/25 10:15 AST 20 U/L (0-40) 03/21/25 10:15 ALT 7 U/L (0-41) 03/21/25 10:15 Alkaline Phosphatase 63 U/L (40-130) 03/21/25 10:15 Total Protein 6.8 g/dL (6.6-8.7) 03/21/25 10:15 Albumin 4.4 g/dL (3.5-5.2) 03/21/25 10:15 Globulin 2.4 g/dL (1.3-4.6) 03/21/25 10:15 No radiology studies performed this visit Discharge Plan Discharge Patient Disposition: Home Clinical Impression: Lower gastrointestinal hemorrhage Condition: Stable Prescriptions: No Action acetaminophen [Tylenol] 325 mg tablet 325 mg PO .PRN docusate sodium [Dulcolax Stool Softener (dss)] 100 mg capsule 100 mg PO DAILY PRN polyethylene glycol 3350 [Miralax] 17 gram/dose powder 17 g PO DAILY multivitamin Tablet 1 tab PO DAILY triamcinolone acetonide 0.1 % cream 1 applic topical BID fluticasone propionate 50 mcg/actuation spray,suspension See Rx Instructions .ROUTE .COMPLEX Qty: 48 5RF Dose Instruction: USE 1 SPRAY IN EACH NOSTRIL DAILY Rx Instructions: USE 2 SPRAY IN EACH NOSTRIL DAILY cetirizine 10 mg tablet See Rx Instructions .ROUTE .COMPLEX Qty: 90 3RF Dose Instruction: TAKE 1 TABLET DAILY NEEDED FOR ALLERGY SYMPTOMS Rx Instructions: TAKE 1 TABLET DAILY NEEDED FOR ALLERGY SYMPTOMS albuterol sulfate 90 mcg/actuation HFA aerosol inhaler See Rx Instructions .ROUTE .COMPLEX Qty: 51 3RF Dose Instruction: USE 1 INHALATION FOUR TIMES A DAY NEEDED FOR SHORTNESS OF BREATH OR WHEEZING Rx Instructions: USE 1 INHALATION FOUR TIMES A DAY NEEDED FOR SHORTNESS OF BREATH OR WHEEZING dexlansoprazole [Dexilant] 60 mg capsule,biphase delayed releas See Rx Instructions .ROUTE .COMPLEX Qty: 30 3RF Dose Instruction: TAKE ONE CAPSULE BY MOUTH EVERY DAY Rx Instructions: TAKE ONE CAPSULE BY MOUTH EVERY DAY alprazolam [Xanax] 0.25 mg tablet 0.25 mg PO TID PRN (Reason: anxiety) Qty: 60 1RF Rx Instructions: Refill for Dr. Lyman in his absence Discharge Orders: Discharge ED (Routine); Ordered 03/21/25 Ordered By: Eduin Mccullough Referrals: Guero Rios MD [Primary Care Provider, Family Practice] - 4-7 days Discharge Diet: Advance as tolerated Discharge Activity: Resume usual activity Patient Instructions: Rectal Bleeding (ED) Print Language: Welsh Coding Level of Care Code ED Fur Stretcher for Mikayla Greenwood
[2025-03-21 11:35] VITALS: BP 167/104; PULSE 81; O2SAT 96
== END 2025-03-21 11:47 | disposition home or self-care (01) ==
PROVIDERS: Physician Assistant; Emergency Provider Emergency Medicine; PCP Family Medicine
DX: K92.2 Gastrointestinal hemorrhage, unspecified (principal)
CPT/HCPCS: 36415; 80053; 85025; 85610; 85730; 99283